=== PATIENT | female | born 1945 | race African-American/Black ===

== ENCOUNTER 2020-04-11 07:33 | Inpatient (IN) | payer MEDICARE, MEDICAID ==
[~2020-04-11] VITALS: Ht 160 cm; Wt 80.0 kg
[2020-04-11] MEDS ORDERED: LEVETIRACETAM 1000MG/100ML 100 ML IV ONE (08:15)
[2020-04-11 08:35] LABS: HEMOGLOBIN. 12.1 g/dL (12.0-16.0); MEAN CORPUSCULAR HEMOGLOBIN 29.1 pg (28.0-32.0); MEAN CORPUSCULAR VOLUME 84.3 fL (81.0-99.0); MEAN PLATELET VOLUME 8.4 fl (7.4-10.4); PLATELET 279 x1000/uL (130-400); RED BLOOD CELL COUNT 4.15 mill/uL (4.2-5.4)
[2020-04-11 08:42] LABS: CHLORIDE 104 mEq/L (98-107)
[2020-04-11 08:50] LABS: CREATINE KINASE 178 IU/L (26-192)
[2020-04-11 08:51] LABS: D-DIMER 1.31 mg/L FEU (<0.50); INR 0.9; PROTHROMBIN TIME 9.7 sec (9.6-11.0)
[2020-04-11 09:01] LABS: CARBAMAZEPINE < 0.5 ug/mL (4-12); PHENOBARBITAL < 2.1 ug/mL (15.0-40.0); VALPROIC ACID < 3.0 ug/mL (50-100)
[2020-04-11 09:15] LABS: PLATELET ESTIMATE NORMAL
[2020-04-11] MEDS ORDERED: POTASSIUM CHLORIDE 20MEQ TABLET SR PO ONE (09:15)
[2020-04-11 09:39] LABS: CLARITY URINE CLOUDY (CLEAR); COLOR URINE YELLOW (YELLOW); KETONES URINE NEGATIVE (NEGATIVE); LEUKOCYTE ESTERASE URINE 3+ (NEGATIVE); NITRITE URINE NEGATIVE (NEGATIVE); OCCULT BLOOD URINE 2+ (NEGATIVE); PROTEIN URINE 1+ (NEGATIVE); SPECIFIC GRAVITY URINE 1.011 (1.005-1.030); UROBILINOGEN URINE 0.2 E.U./dL (0.2-1.0)
[2020-04-11] MEDS ORDERED: CEFTRIAXONE 1 G PREMIX 50 ML IV ONE (10:45)
[2020-04-11] MEDS: SODIUM CHLORIDE 0.45% 1,000 ML IV SCH ×2 (10:58→22:55)
[2020-04-11] MEDS ORDERED: DOCUSATE SODIUM 100MG CAPSULE PO PRN (11:00)
[2020-04-11] MEDS ORDERED: HYDROCODONE/ACETAMINOPHEN 5/325MG TABLET PO PRN (11:00)
[2020-04-11] MEDS ORDERED: GUAIFENESIN 200MG/10ML SUGAR FREE UDC PO PRN (11:00)
[2020-04-11] MEDS ORDERED: ONDANSETRON HCL 4MG/2ML INJ IV PRN (11:00)
[2020-04-11] MEDS ORDERED: MAGNESIUM/ALUMINUM HYDROXIDE/SIMETHICONE 30ML UDC PO PRN (11:00)
[2020-04-11] MEDS ORDERED: DIPHENHYDRAMINE 50MG/ML VIAL IV PRN (11:00)
[2020-04-11] MEDS ORDERED: NA PHOS,M-B/NA PHOS,DI-BA ENEMA 118ML PR PRN (11:00)
[2020-04-11] MEDS ORDERED: LORAZEPAM 2MG/ML CPJ IV PRN (11:00)
[2020-04-11] MEDS ORDERED: IPRATROPIUM/ALBUTEROL 0.5-3(2.5)MG/3ML NEB NEB PRN (11:00)
[2020-04-11] MEDS ORDERED: MORPHINE SULFATE 2 MG/ML CPJ (NOT FOR IM USE) IV PRN (11:00)
[2020-04-11] MEDS ORDERED: CLONIDINE 0.1MG TABLET PO PRN (11:00)
[2020-04-11] MEDS: ENOXAPARIN 30MG/0.3ML SYR SUBCUT SCH (12:15)
[2020-04-11] MEDS: AZITHROMYCIN 500 MG in DEXT 5% WATER 250 ML IV SCH (12:27)
[2020-04-11 17:33] LABS: CHLORIDE 112 mEq/L (98-107)
[2020-04-11 17:41] LABS: CREATINE KINASE 166 IU/L (26-192)
[2020-04-11] MEDS ORDERED: AMLO-375 MT (18:00)
[2020-04-11] MEDS ORDERED: CALC-1042 MT (18:00)
[2020-04-11] MEDS ORDERED: VALS1TAB75 MT (18:00)
[2020-04-11] MEDS ORDERED: METF-416 MT (18:00)
[2020-04-11] MEDS ORDERED: BRIM10DR2 EACHEYE (18:02)
[2020-04-11] MEDS ORDERED: LATA2.5D2 EACHEYE (18:02)
[2020-04-11 21:30] VITALS: BP 136/51
[2020-04-11] MEDS ORDERED: LEVETIRACETAM 500MG PREMIX 100 ML IV ONE (21:30)
[2020-04-11] MEDS: ACETAMINOPHEN 325MG TABLET PO PRN (22:23)
[2020-04-11] MEDS ORDERED: DEXTROSE 50% WATER 50ML SYRINGE IV PRN (23:15)
[2020-04-12] VITALS: BP 87/36
[2020-04-12] MEDS ORDERED: ALBUTEROL 6.7GM HFA INHALER INH PRN (03:00)
[2020-04-12 04:00] VITALS: BP 84/40
[2020-04-12] MEDS: BLOOD SUGAR DIAGNOSTIC STRIP TEST SCH ×4 (06:08→21:42)
[2020-04-12 07:20] LABS: BASOPHILS % 0.2 % (0.0-2.0); HEMATOCRIT. 30.1 % (36.0-48.0); HEMOGLOBIN. 10.3 g/dL (12.0-16.0); LYMPHOCYTES % 15.2 % (20.0-50.0); MEAN CORPUSCULAR HEMOGLOBIN 29.2 pg (28.0-32.0); MEAN CORPUSCULAR VOLUME 85.2 fL (81.0-99.0); MONOCYTES % 7.2 % (2.0-8.0); NEUTROPHILS % 77.4 % (40.0-76.0); PLATELET 221 x1000/uL (130-400); RED BLOOD CELL COUNT 3.53 mill/uL (4.2-5.4); RED CELL DISTRIBUTION WIDTH 14.2 % (11.6-14.6)
[2020-04-12 07:38] LABS: CHLORIDE 116 mEq/L (98-107)
[2020-04-12 07:48] LABS: LDL CHOLESTEROL 68 mg/dL (5-100)
[2020-04-12 07:50] LABS: T4 FREE 1.28 ng/dL (0.76-1.46)
[2020-04-12 07:53] LABS: PHOSPHORUS 2.6 mg/dL (2.5-4.9)
[2020-04-12 07:56] LABS: HDL CHOLESTEROL 37 mg/dL (40-59)
[2020-04-12 08:00] VITALS: BP 100/43
[2020-04-12] MEDS: INSULIN LISPRO 100 UNITS/ML SUBCUT SCH ×4 (08:10→21:00)
[2020-04-12] MEDS: ENOXAPARIN 30MG/0.3ML SYR SUBCUT SCH (08:40)
[2020-04-12] MEDS: ASPIRIN 81MG EC TABLET PO SCH (08:40)
[2020-04-12] MEDS: LEVETIRACETAM 500MG TABLET PO SCH ×2 (08:40→16:19)
[2020-04-12] MEDS: ACETAMINOPHEN 325MG TABLET PO PRN ×2 (10:37→21:43)
[2020-04-12 12:00] VITALS: BP 101/51
[2020-04-12] MEDS ORDERED: LEVOFLOXACIN 500MG PREMIX 100 ML IV NR (12:00)
[2020-04-12] MEDS: AZITHROMYCIN 500 MG in DEXT 5% WATER 250 ML IV SCH (12:35)
[2020-04-12 16:00] VITALS: BP 103/46
[2020-04-12 20:00] VITALS: BP 136/49
[2020-04-13] VITALS: BP 107/39
[2020-04-13] MEDS: ACETAMINOPHEN 325MG TABLET PO PRN ×2 (03:34→16:18)
[2020-04-13 04:00] VITALS: BP 103/46
[2020-04-13] MEDS: BLOOD SUGAR DIAGNOSTIC STRIP TEST SCH ×4 (05:54→20:49)
[2020-04-13 06:19] LABS: BASOPHILS % 0.1 % (0.0-2.0); HEMATOCRIT. 30.4 % (36.0-48.0); HEMOGLOBIN. 10.3 g/dL (12.0-16.0); LYMPHOCYTES % 10.9 % (20.0-50.0); MEAN CORPUSCULAR HEMOGLOBIN 29.1 pg (28.0-32.0); MEAN CORPUSCULAR VOLUME 85.4 fL (81.0-99.0); MEAN PLATELET VOLUME 7.8 fl (7.4-10.4); MONOCYTES % 4.5 % (2.0-8.0); NEUTROPHILS % 84.5 % (40.0-76.0); PLATELET 252 x1000/uL (130-400); RED BLOOD CELL COUNT 3.56 mill/uL (4.2-5.4); RED CELL DISTRIBUTION WIDTH 14.4 % (11.6-14.6)
[2020-04-13 06:41] LABS: CHLORIDE 112 mEq/L (98-107)
[2020-04-13] MEDS: INSULIN LISPRO 100 UNITS/ML SUBCUT SCH ×4 (07:25→20:49)
[2020-04-13 07:46] VITALS: BP 97/35
[2020-04-13] MEDS: ENOXAPARIN 30MG/0.3ML SYR SUBCUT SCH (08:34)
[2020-04-13] MEDS: ASPIRIN 81MG EC TABLET PO SCH (08:34)
[2020-04-13] MEDS: LEVETIRACETAM 500MG TABLET PO SCH ×2 (08:34→16:18)
[2020-04-13] MEDS: LEVOFLOXACIN 250MG PREMIX 50 ML IV SCH (08:34)
[2020-04-13 12:00] VITALS: BP 132/55
[2020-04-13] MEDS: SODIUM CHLORIDE 0.45% 1,000 ML IV SCH ×2 (12:53→22:58)
[2020-04-13] MEDS: AZITHROMYCIN 500 MG in DEXT 5% WATER 250 ML IV SCH (13:11)
[2020-04-13 16:00] VITALS: BP 103/51
[2020-04-13 20:00] VITALS: BP 100/42
[2020-04-14] VITALS: BP 123/49
[2020-04-14] MEDS: ACETAMINOPHEN 325MG TABLET PO PRN ×3 (00:45→22:21)
[2020-04-14 04:00] VITALS: BP 123/56
[2020-04-14] MEDS: BLOOD SUGAR DIAGNOSTIC STRIP TEST SCH ×4 (07:05→21:52)
[2020-04-14] MEDS: INSULIN LISPRO 100 UNITS/ML SUBCUT SCH ×4 (07:47→22:21)
[2020-04-14 07:52] LABS: BASOPHILS % 0.1 % (0.0-2.0); HEMATOCRIT. 32.3 % (36.0-48.0); HEMOGLOBIN. 11.1 g/dL (12.0-16.0); LYMPHOCYTES % 8.1 % (20.0-50.0); MEAN CORPUSCULAR HEMOGLOBIN 29.1 pg (28.0-32.0); MEAN CORPUSCULAR VOLUME 84.9 fL (81.0-99.0); MEAN PLATELET VOLUME 7.4 fl (7.4-10.4); NEUTROPHILS % 86.8 % (40.0-76.0); PLATELET 302 x1000/uL (130-400); RED BLOOD CELL COUNT 3.81 mill/uL (4.2-5.4); RED CELL DISTRIBUTION WIDTH 14.1 % (11.6-14.6)
[2020-04-14 08:00] VITALS: BP 120/61
[2020-04-14 08:14] LABS: CHLORIDE 111 mEq/L (98-107)
[2020-04-14] MEDS: LEVETIRACETAM 500MG TABLET PO SCH ×2 (08:38→18:00)
[2020-04-14] MEDS: ENOXAPARIN 40MG/0.4ML SYR SUBCUT SCH (08:38)
[2020-04-14] MEDS: LEVOFLOXACIN 250MG PREMIX 50 ML IV SCH (08:38)
[2020-04-14] MEDS: ASPIRIN 81MG EC TABLET PO SCH (08:38)
[2020-04-14 12:00] VITALS: BP 126/55
[2020-04-14] MEDS: AZITHROMYCIN 500 MG in DEXT 5% WATER 250 ML IV SCH (13:25)
[2020-04-14 16:00] VITALS: BP 118/59
[2020-04-14] MEDS: ALBUTEROL 6.7GM HFA INHALER ORI SCH ×2 (18:00→22:51)
[2020-04-14] MEDS: CEFTRIAXONE 1 G PREMIX 50 ML IV SCH (18:30)
[2020-04-14] MEDS: SODIUM CHLORIDE 0.45% 1,000 ML IV SCH (18:52)
[2020-04-14 20:00] VITALS: BP 115/48
[2020-04-15] VITALS: BP 111/43
[2020-04-15 04:00] VITALS: BP 145/67
[2020-04-15] MEDS: BLOOD SUGAR DIAGNOSTIC STRIP TEST SCH ×4 (06:55→21:00)
[2020-04-15] MEDS: ALBUTEROL 6.7GM HFA INHALER ORI SCH ×3 (06:56→18:00)
[2020-04-15 08:00] VITALS: BP 114/54
[2020-04-15] MEDS: INSULIN LISPRO 100 UNITS/ML SUBCUT SCH ×4 (08:10→22:13)
[2020-04-15] MEDS: LEVETIRACETAM 500MG TABLET PO SCH ×2 (08:46→17:30)
[2020-04-15] MEDS: ENOXAPARIN 40MG/0.4ML SYR SUBCUT SCH (08:46)
[2020-04-15] MEDS: ASPIRIN 81MG EC TABLET PO SCH (08:46)
[2020-04-15 12:00] VITALS: BP_SYST 119; BP_DIAS 13; BP_DIAS 36
[2020-04-15] MEDS: AZITHROMYCIN 500 MG in DEXT 5% WATER 250 ML IV SCH (12:18)
[2020-04-15] MEDS ORDERED: REMDESIVIR 200 MG in SODIUM CHLORIDE 0.9% 250 ML IV SCH (15:00)
[2020-04-15] MEDS: DEXAMETHASONE 10 MG/ML VIAL IV SCH (15:38)
[2020-04-15] MEDS: SODIUM CHLORIDE 0.45% 1,000 ML IV SCH (15:39)
[2020-04-15 16:12] VITALS: BP 162/63
[2020-04-15] MEDS: CEFTRIAXONE 1 G PREMIX 50 ML IV SCH (18:43)
[2020-04-15 20:00] VITALS: BP 155/77
[2020-04-15 21:24] LABS: BG BASE EXCESS -5.9 mmol/L (-2.0-2.0); BG CARBOXYHEMOGLOBIN 0.3 % (0.5-1.5); BG DEOXYHEMOGLOBIN 9.8 % (0.0-5.0); BG FRACTION INSPIRED OXYGEN 100+; BG HCO3 ACT 17.2 mmol/L (22.0-26.0); BG METHEMOGLOBIN 0.3 % (0.0-1.5); BG OXYGEN SATURATION 90.1 % (92.0-98.5); BG OXYHEMOGLOBIN 89.6 % (94.0-97.0); BG PCO2 26.8 mmHg (35.0-45.0); BG PH 7.424 (7.350-7.450); BG SAMPLE SITE RIGHT BRACHIAL; BG TOTAL HEMOGLOBIN 11.4 g/dL (12.0-18.0); BG VENT MODE MASK - NRB
[2020-04-15] MEDS: GUAIFENESIN 600MG ER TABLET PO SCH (22:12)
[2020-04-16] VITALS (94 sets, daily range): BP systolic 57–201; BP diastolic 27–115
[2020-04-16 05:55] LABS: CHLORIDE 108 mEq/L (98-107)
[2020-04-16] MEDS: BLOOD SUGAR DIAGNOSTIC STRIP TEST SCH ×5 (06:31→23:11)
[2020-04-16] MEDS: INSULIN LISPRO 100 UNITS/ML SUBCUT SCH ×4 (07:27→23:13)
[2020-04-16] MEDS: ASPIRIN 81MG EC TABLET PO SCH (08:14)
[2020-04-16] MEDS: GUAIFENESIN 600MG ER TABLET PO SCH ×2 (08:14→20:54)
[2020-04-16] MEDS: DEXAMETHASONE 10 MG/ML VIAL IV SCH ×2 (08:14→16:18)
[2020-04-16] MEDS: LEVETIRACETAM 500MG TABLET PO SCH ×2 (08:14→16:18)
[2020-04-16] MEDS: ENOXAPARIN 40MG/0.4ML SYR SUBCUT SCH (08:15)
[2020-04-16 09:32] LABS: BG BASE EXCESS -7.3 mmol/L (-2.0-2.0); BG CARBOXYHEMOGLOBIN 0.3 % (0.5-1.5); BG DEOXYHEMOGLOBIN 16.2 % (0.0-5.0); BG FRACTION INSPIRED OXYGEN 100; BG HCO3 ACT 16.7 mmol/L (22.0-26.0); BG METHEMOGLOBIN 0.2 % (0.0-1.5); BG OXYGEN SATURATION 83.7 % (92.0-98.5); BG OXYHEMOGLOBIN 83.3 % (94.0-97.0); BG PCO2 29.3 mmHg (35.0-45.0); BG PH 7.373 (7.350-7.450); BG PO2 50.5 mmHg (75.0-100.0); BG SAMPLE SITE RIGHT RADIAL; BG TOTAL HEMOGLOBIN 11.8 g/dL (12.0-18.0); BG VENT MODE MASK - NRB
[2020-04-16] MEDS ORDERED: NOREPINEPHRINE 32 MG in DEXT 5% WATER 468 ML IV PRN (10:00)
[2020-04-16 10:06] LABS: HEMATOCRIT. 32.5 % (36.0-48.0); HEMOGLOBIN. 10.8 g/dL (12.0-16.0); MEAN CORPUSCULAR HEMOGLOBIN 28.7 pg (28.0-32.0); MEAN CORPUSCULAR VOLUME 86.5 fL (81.0-99.0); MEAN PLATELET VOLUME 7.7 fl (7.4-10.4); RED BLOOD CELL COUNT 3.76 mill/uL (4.2-5.4); RED CELL DISTRIBUTION WIDTH 14.3 % (11.6-14.6)
[2020-04-16 10:11] LABS: PLATELET 41 x1000/uL (130-400)
[2020-04-16] MEDS: PROPOFOL 10MG/ML 100ML 100 ML IV PRN ×3 (10:35→21:34)
[2020-04-16 11:18] LABS: PLATELET ESTIMATE MARKEDLY DECREASED
[2020-04-16] MEDS: SODIUM CHLORIDE 0.45% 1,000 ML IV SCH (11:18)
[2020-04-16] MEDS: FENTANYL CITRATE/PF 1,000 MCG in SODIUM CHLORIDE 0.9% 80 ML IV PRN ×2 (11:19→22:50)
[2020-04-16 11:31] LABS: BG BASE EXCESS -7.2 mmol/L (-2.0-2.0); BG CARBOXYHEMOGLOBIN 0.2 % (0.5-1.5); BG DEOXYHEMOGLOBIN 1.9 % (0.0-5.0); BG FRACTION INSPIRED OXYGEN 100; BG HCO3 ACT 18.2 mmol/L (22.0-26.0); BG METHEMOGLOBIN 0.3 % (0.0-1.5); BG OXYGEN SATURATION 98.1 % (92.0-98.5); BG OXYHEMOGLOBIN 97.6 % (94.0-97.0); BG PCO2 36.2 mmHg (35.0-45.0); BG PH 7.319 (7.350-7.450); BG PO2 139.6 mmHg (75.0-100.0); BG SAMPLE SITE RIGHT RADIAL; BG TIDAL VOLUME(mL) 450 mL; BG TOTAL HEMOGLOBIN 10.9 g/dL (12.0-18.0); BG VENT MODE VENT- PRVC; BG VENT RATE 18 set
[2020-04-16] MEDS: REMDESIVIR 100 MG in SODIUM CHLORIDE 0.9% 250 ML IV SCH (14:02)
[2020-04-16] MEDS ORDERED: INSULIN GLARGINE UD 100 UNITS/ML SYR SUBCUT SCH (15:00)
[2020-04-16] MEDS ORDERED: DEXTROSE 50% WATER 50ML SYRINGE IV PRN (16:45)
[2020-04-16] MEDS: CEFTRIAXONE 1 G PREMIX 50 ML IV SCH (17:34)
[2020-04-17] VITALS (109 sets, daily range): BP systolic 81–170; BP diastolic 32–106
[2020-04-17] MEDS: NOREPINEPHRINE 4 MG in DEXT 5% WATER 246 ML IV PRN (00:37)
[2020-04-17 05:28] LABS: HEMATOCRIT. 29.9 % (36.0-48.0); HEMOGLOBIN. 10.2 g/dL (12.0-16.0); MEAN CORPUSCULAR HEMOGLOBIN 29.2 pg (28.0-32.0); MEAN CORPUSCULAR VOLUME 86.1 fL (81.0-99.0); MEAN PLATELET VOLUME 8.8 fl (7.4-10.4); RED BLOOD CELL COUNT 3.47 mill/uL (4.2-5.4); RED CELL DISTRIBUTION WIDTH 14.4 % (11.6-14.6)
[2020-04-17 05:33] LABS: CHLORIDE 109 mEq/L (98-107)
[2020-04-17] MEDS: INSULIN LISPRO 100 UNITS/ML SUBCUT SCH ×4 (05:40→23:36)
[2020-04-17] MEDS: BLOOD SUGAR DIAGNOSTIC STRIP TEST SCH ×4 (05:40→23:32)
[2020-04-17] MEDS: ALBUTEROL 6.7GM HFA INHALER ORI SCH ×4 (06:00→20:18)
[2020-04-17] MEDS: PROPOFOL 10MG/ML 100ML 100 ML IV PRN (06:10)
[2020-04-17] MEDS: SODIUM CHLORIDE 0.45% 1,000 ML IV SCH (07:16)
[2020-04-17] MEDS: GUAIFENESIN 600MG ER TABLET PO SCH ×2 (09:00→20:05)
[2020-04-17 09:10] LABS: BG BASE EXCESS -5.4 mmol/L (-2.0-2.0); BG CARBOXYHEMOGLOBIN 0.2 % (0.5-1.5); BG DEOXYHEMOGLOBIN 8.5 % (0.0-5.0); BG FRACTION INSPIRED OXYGEN 80; BG HCO3 ACT 19.7 mmol/L (22.0-26.0); BG OXYGEN SATURATION 91.5 % (92.0-98.5); BG OXYHEMOGLOBIN 91.3 % (94.0-97.0); BG PCO2 36.7 mmHg (35.0-45.0); BG PH 7.347 (7.350-7.450); BG SAMPLE SITE RIGHT RADIAL; BG TIDAL VOLUME(mL) 450 mL; BG TOTAL HEMOGLOBIN 10.1 g/dL (12.0-18.0); BG VENT MODE VENT- PRVC; BG VENT RATE 20 set
[2020-04-17 10:03] LABS: PLATELET ESTIMATE MARKEDLY DECREASED
[2020-04-17 10:04] LABS: PLATELET 9 x1000/uL (130-400)
[2020-04-17] MEDS: LEVETIRACETAM 500MG TABLET PO SCH ×2 (10:07→17:04)
[2020-04-17] MEDS: DEXAMETHASONE 10 MG/ML VIAL IV SCH ×2 (10:07→17:04)
[2020-04-17] MEDS: INSULIN GLARGINE UD 100 UNITS/ML SYR SUBCUT SCH (10:09)
[2020-04-17] MEDS: FENTANYL CITRATE/PF 1,000 MCG in SODIUM CHLORIDE 0.9% 80 ML IV PRN ×2 (10:52→23:33)
[2020-04-17] MEDS ORDERED: PROPOFOL 10MG/ML 100ML 100 ML IV PRN ×2 (13:30→14:15)
[2020-04-17] MEDS: REMDESIVIR 100 MG in SODIUM CHLORIDE 0.9% 250 ML IV SCH (15:09)
[2020-04-17] MEDS: MIDAZOLAM HCL 100 MG in DEXT 5% WATER 80 ML IV PRN (16:41)
[2020-04-17] MEDS: CEFTRIAXONE 1 G PREMIX 50 ML IV SCH (17:59)
[2020-04-18] VITALS (95 sets, daily range): BP systolic 106–166; BP diastolic 37–81
[2020-04-18] MEDS: ALBUTEROL 6.7GM HFA INHALER ORI SCH ×3 (00:58→21:28)
[2020-04-18 05:15] LABS: CHLORIDE 111 mEq/L (98-107)
[2020-04-18] MEDS: SODIUM CHLORIDE 0.45% 1,000 ML IV SCH (05:16)
[2020-04-18] MEDS: BLOOD SUGAR DIAGNOSTIC STRIP TEST SCH ×3 (05:16→17:51)
[2020-04-18] MEDS: INSULIN LISPRO 100 UNITS/ML SUBCUT SCH ×4 (05:16→23:25)
[2020-04-18 06:10] LABS: HEMOGLOBIN. 9.5 g/dL (12.0-16.0); MEAN CORPUSCULAR HEMOGLOBIN 29.1 pg (28.0-32.0); MEAN CORPUSCULAR VOLUME 85.6 fL (81.0-99.0); RED BLOOD CELL COUNT 3.27 mill/uL (4.2-5.4); RED CELL DISTRIBUTION WIDTH 14.4 % (11.6-14.6)
[2020-04-18 06:14] LABS: PLATELET 42 x1000/uL (130-400)
[2020-04-18] MEDS: DEXAMETHASONE 10 MG/ML VIAL IV SCH ×2 (09:23→18:17)
[2020-04-18] MEDS: LEVETIRACETAM 500MG TABLET PO SCH ×2 (09:23→18:17)
[2020-04-18 09:37] LABS: BG BASE EXCESS -6.3 mmol/L (-2.0-2.0); BG CARBOXYHEMOGLOBIN 0.3 % (0.5-1.5); BG DEOXYHEMOGLOBIN 2.3 % (0.0-5.0); BG FRACTION INSPIRED OXYGEN 80; BG HCO3 ACT 18.7 mmol/L (22.0-26.0); BG METHEMOGLOBIN 0.3 % (0.0-1.5); BG OXYGEN SATURATION 97.7 % (92.0-98.5); BG OXYHEMOGLOBIN 97.1 % (94.0-97.0); BG PH 7.345 (7.350-7.450); BG PO2 120.2 mmHg (75.0-100.0); BG SAMPLE SITE RIGHT RADIAL; BG TIDAL VOLUME(mL) 450 mL; BG TOTAL HEMOGLOBIN 9.2 g/dL (12.0-18.0); BG VENT MODE VENT- PRVC; BG VENT RATE 20 set
[2020-04-18] MEDS ORDERED: BISACODYL 5MG TABLET PO PRN (09:45)
[2020-04-18 10:22] LABS: PLATELET ESTIMATE MARKEDLY DECREASED
[2020-04-18] MEDS: DOCUSATE SODIUM SUGAR FREE 100MG/10ML UDC NG SCH (12:52)
[2020-04-18] MEDS: INSULIN GLARGINE UD 100 UNITS/ML SYR SUBCUT SCH ×2 (12:54→21:22)
[2020-04-18] MEDS: FENTANYL CITRATE/PF 1,000 MCG in SODIUM CHLORIDE 0.9% 80 ML IV PRN (13:12)
[2020-04-18] MEDS: MIDAZOLAM HCL 100 MG in DEXT 5% WATER 80 ML IV PRN (13:12)
[2020-04-18] MEDS: REMDESIVIR 100 MG in SODIUM CHLORIDE 0.9% 250 ML IV SCH (14:18)
[2020-04-18] MEDS: PANTOPRAZOLE SODIUM 40 MG/VIAL IV SCH (18:17)
[2020-04-18] MEDS ORDERED: NON FORMULARY PATIENT HOME MED XX SCH (18:30)
[2020-04-18] MEDS: CEFTRIAXONE 1 G PREMIX 50 ML IV SCH (18:30)
[2020-04-18] MEDS: LATANOPROST 0.005% OPHTH DROPS 2.5ML BOTHEYE SCH (21:22)
[2020-04-18] MEDS: TIMOLOL MALEATE 0.5% OPHTH DROPS 5ML EACHEYE SCH (21:22)
[2020-04-18] MEDS: BRIMONIDINE 0.2% OPHTH DROPS 5ML EACHEYE SCH (21:23)
[2020-04-19] VITALS (96 sets, daily range): BP systolic 79–192; BP diastolic 32–148
[2020-04-19] MEDS: BLOOD SUGAR DIAGNOSTIC STRIP TEST SCH ×5 (00:48→23:39)
[2020-04-19] MEDS: ALBUTEROL 6.7GM HFA INHALER ORI SCH ×4 (01:26→20:10)
[2020-04-19] MEDS: MIDAZOLAM HCL 100 MG in DEXT 5% WATER 80 ML IV PRN ×2 (05:50→16:03)
[2020-04-19] MEDS: INSULIN LISPRO 100 UNITS/ML SUBCUT SCH ×4 (06:20→23:41)
[2020-04-19 06:21] LABS: CHLORIDE 119 mEq/L (98-107)
[2020-04-19] MEDS: BRIMONIDINE 0.2% OPHTH DROPS 5ML EACHEYE SCH ×3 (06:22→22:31)
[2020-04-19 06:52] LABS: HEMATOCRIT. 28.3 % (36.0-48.0); HEMOGLOBIN. 9.7 g/dL (12.0-16.0); MEAN CORPUSCULAR HEMOGLOBIN 29.1 pg (28.0-32.0); MEAN PLATELET VOLUME 9.4 fl (7.4-10.4); RED BLOOD CELL COUNT 3.33 mill/uL (4.2-5.4); RED CELL DISTRIBUTION WIDTH 14.3 % (11.6-14.6)
[2020-04-19 07:01] LABS: PLATELET 37 x1000/uL (130-400)
[2020-04-19] MEDS: FENTANYL CITRATE/PF 1,000 MCG in SODIUM CHLORIDE 0.9% 80 ML IV PRN ×2 (07:17→16:01)
[2020-04-19 08:19] LABS: BG BASE EXCESS -0.7 mmol/L (-2.0-2.0); BG CARBOXYHEMOGLOBIN 0.3 % (0.5-1.5); BG DEOXYHEMOGLOBIN 7.6 % (0.0-5.0); BG FRACTION INSPIRED OXYGEN 100; BG HCO3 ACT 24.6 mmol/L (22.0-26.0); BG METHEMOGLOBIN 0.2 % (0.0-1.5); BG OXYGEN SATURATION 92.4 % (92.0-98.5); BG OXYHEMOGLOBIN 91.9 % (94.0-97.0); BG PCO2 43.4 mmHg (35.0-45.0); BG PH 7.372 (7.350-7.450); BG PO2 77.6 mmHg (75.0-100.0); BG SAMPLE SITE RIGHT RADIAL; BG TIDAL VOLUME(mL) 450 mL; BG TOTAL HEMOGLOBIN 12.3 g/dL (12.0-18.0); BG VENT MODE PRVC; BG VENT RATE 20 set
[2020-04-19] MEDS: TIMOLOL MALEATE 0.5% OPHTH DROPS 5ML EACHEYE SCH ×2 (08:55→21:00)
[2020-04-19] MEDS: PANTOPRAZOLE SODIUM 40 MG/VIAL IV SCH (08:55)
[2020-04-19] MEDS: DOCUSATE SODIUM SUGAR FREE 100MG/10ML UDC NG SCH (08:55)
[2020-04-19] MEDS: LEVETIRACETAM 500MG TABLET PO SCH ×2 (08:55→18:01)
[2020-04-19] MEDS: DEXAMETHASONE 10 MG/ML VIAL IV SCH ×2 (08:55→18:01)
[2020-04-19] MEDS ORDERED: DEXTROSE 5% WATER 1,000 ML IV SCH (10:15)
[2020-04-19 11:58] LABS: BG BASE EXCESS -3.5 mmol/L (-2.0-2.0); BG CARBOXYHEMOGLOBIN 0.3 % (0.5-1.5); BG DEOXYHEMOGLOBIN 17.1 % (0.0-5.0); BG FRACTION INSPIRED OXYGEN 100; BG HCO3 ACT 24.2 mmol/L (22.0-26.0); BG METHEMOGLOBIN 0.5 % (0.0-1.5); BG OXYGEN SATURATION 82.8 % (92.0-98.5); BG OXYHEMOGLOBIN 82.1 % (94.0-97.0); BG PH 7.253 (7.350-7.450); BG PO2 55.5 mmHg (75.0-100.0); BG SAMPLE SITE RIGHT RADIAL; BG TIDAL VOLUME(mL) 450 mL; BG TOTAL HEMOGLOBIN 11.2 g/dL (12.0-18.0); BG VENT MODE PRVC; BG VENT RATE 20 set
[2020-04-19] MEDS: INSULIN GLARGINE UD 100 UNITS/ML SYR SUBCUT SCH ×2 (12:05→22:07)
[2020-04-19] MEDS: REMDESIVIR 100 MG in SODIUM CHLORIDE 0.9% 250 ML IV SCH (14:29)
[2020-04-19] MEDS: NOREPINEPHRINE 4 MG in DEXT 5% WATER 246 ML IV PRN ×3 (14:55→23:39)
[2020-04-19 14:59] LABS: PLATELET ESTIMATE MARKEDLY DECREASED
[2020-04-19] MEDS: CEFTRIAXONE 1 G PREMIX 50 ML IV SCH (18:02)
[2020-04-19] MEDS: LATANOPROST 0.005% OPHTH DROPS 2.5ML BOTHEYE SCH (21:00)
[2020-04-20] VITALS (76 sets, daily range): BP systolic 56–150; BP diastolic 28–65
[2020-04-20] MEDS: ALBUTEROL 6.7GM HFA INHALER ORI SCH ×3 (00:20→12:35)
[2020-04-20] MEDS: NOREPINEPHRINE 4 MG in DEXT 5% WATER 246 ML IV PRN ×2 (02:56→13:28)
[2020-04-20] MEDS: FENTANYL CITRATE/PF 1,000 MCG in SODIUM CHLORIDE 0.9% 80 ML IV PRN ×2 (03:44→13:29)
[2020-04-20] MEDS: MIDAZOLAM HCL 100 MG in DEXT 5% WATER 80 ML IV PRN ×2 (03:45→13:30)
[2020-04-20 04:55] LABS: HEMATOCRIT. 31.2 % (36.0-48.0); HEMOGLOBIN. 10.1 g/dL (12.0-16.0); MEAN CORPUSCULAR HEMOGLOBIN 28.9 pg (28.0-32.0); MEAN PLATELET VOLUME 9.9 fl (7.4-10.4); PLATELET 102 x1000/uL (130-400); RED BLOOD CELL COUNT 3.51 mill/uL (4.2-5.4); RED CELL DISTRIBUTION WIDTH 15.1 % (11.6-14.6)
[2020-04-20] MEDS: BRIMONIDINE 0.2% OPHTH DROPS 5ML EACHEYE SCH ×2 (06:00→14:00)
[2020-04-20] MEDS: BLOOD SUGAR DIAGNOSTIC STRIP TEST SCH ×4 (06:06→23:29)
[2020-04-20] MEDS: INSULIN LISPRO 100 UNITS/ML SUBCUT SCH ×4 (06:09→23:21)
[2020-04-20] MEDS: TIMOLOL MALEATE 0.5% OPHTH DROPS 5ML EACHEYE SCH ×2 (08:23→21:00)
[2020-04-20] MEDS: PANTOPRAZOLE SODIUM 40 MG/VIAL IV SCH (08:24)
[2020-04-20] MEDS: LEVETIRACETAM 500MG TABLET PO SCH ×2 (08:24→17:00)
[2020-04-20] MEDS: DOCUSATE SODIUM SUGAR FREE 100MG/10ML UDC NG SCH (08:34)
[2020-04-20] MEDS ORDERED: DEXAMETHASONE 10 MG/ML VIAL IV SCH (09:00)
[2020-04-20 09:03] LABS: BG CARBOXYHEMOGLOBIN 0.1 % (0.5-1.5); BG DEOXYHEMOGLOBIN 1.6 % (0.0-5.0); BG FRACTION INSPIRED OXYGEN 100; BG HCO3 ACT 20.7 mmol/L (22.0-26.0); BG METHEMOGLOBIN 0.2 % (0.0-1.5); BG OXYGEN SATURATION 98.4 % (92.0-98.5); BG OXYHEMOGLOBIN 98.1 % (94.0-97.0); BG PCO2 63.1 mmHg (35.0-45.0); BG PH 7.134 (7.350-7.450); BG PO2 137.1 mmHg (75.0-100.0); BG SAMPLE SITE RIGHT RADIAL; BG TIDAL VOLUME(mL) 450 mL; BG TOTAL HEMOGLOBIN 12.5 g/dL (12.0-18.0); BG VENT MODE PRVC; BG VENT RATE 20 set
[2020-04-20] MEDS ORDERED: SODIUM BICARBONATE 8.4% 1 MEQ/ML 50ML SYR IV SCH (10:00)
[2020-04-20] MEDS: SODIUM BICARBONATE 150 MEQ in DEXTROSE 5% WATER 1000 ML IV SCH (11:00)
[2020-04-20] MEDS: INSULIN GLARGINE UD 100 UNITS/ML SYR SUBCUT SCH ×2 (11:11→22:00)
[2020-04-20 14:34] LABS: PLATELET ESTIMATE DECREASED
[2020-04-20 14:39] LABS: BG BASE EXCESS -4.3 mmol/L (-2.0-2.0); BG CARBOXYHEMOGLOBIN 0.3 % (0.5-1.5); BG DEOXYHEMOGLOBIN 1.5 % (0.0-5.0); BG FRACTION INSPIRED OXYGEN 90; BG HCO3 ACT 23.6 mmol/L (22.0-26.0); BG METHEMOGLOBIN 0.3 % (0.0-1.5); BG OXYGEN SATURATION 98.5 % (92.0-98.5); BG OXYHEMOGLOBIN 97.9 % (94.0-97.0); BG PCO2 58.1 mmHg (35.0-45.0); BG PH 7.227 (7.350-7.450); BG PO2 149.5 mmHg (75.0-100.0); BG SAMPLE SITE RIGHT RADIAL; BG TIDAL VOLUME(mL) 450 mL; BG VENT MODE VENT - A/C; BG VENT RATE 24 set
[2020-04-20] MEDS: LATANOPROST 0.005% OPHTH DROPS 2.5ML BOTHEYE SCH (21:00)
[2020-04-21] VITALS (83 sets, daily range): BP systolic 63–137; BP diastolic 31–66
[2020-04-21 04:37] LABS: HEMATOCRIT. 26.4 % (36.0-48.0); HEMOGLOBIN. 8.8 g/dL (12.0-16.0); MEAN CORPUSCULAR HEMOGLOBIN 28.8 pg (28.0-32.0); MEAN CORPUSCULAR VOLUME 86.8 fL (81.0-99.0); MEAN PLATELET VOLUME 10.9 fl (7.4-10.4); RED BLOOD CELL COUNT 3.04 mill/uL (4.2-5.4); RED CELL DISTRIBUTION WIDTH 15.3 % (11.6-14.6)
[2020-04-21] MEDS: BLOOD SUGAR DIAGNOSTIC STRIP TEST SCH ×16 (06:23→23:19)
[2020-04-21] MEDS: INSULIN LISPRO 100 UNITS/ML SUBCUT SCH (06:24)
[2020-04-21 07:02] LABS: PLATELET 34 x1000/uL (130-400)
[2020-04-21] MEDS: TIMOLOL MALEATE 0.5% OPHTH DROPS 5ML EACHEYE SCH ×2 (07:55→21:20)
[2020-04-21] MEDS: DOCUSATE SODIUM SUGAR FREE 100MG/10ML UDC NG SCH (07:55)
[2020-04-21] MEDS: LEVETIRACETAM 500MG TABLET PO SCH ×2 (07:56→16:12)
[2020-04-21] MEDS: SODIUM BICARBONATE 150 MEQ in DEXTROSE 5% WATER 1000 ML IV SCH (07:56)
[2020-04-21] MEDS: PANTOPRAZOLE SODIUM 40 MG/VIAL IV SCH (07:56)
[2020-04-21 09:12] LABS: BG CARBOXYHEMOGLOBIN 0.3 % (0.5-1.5); BG DEOXYHEMOGLOBIN 12.6 % (0.0-5.0); BG FRACTION INSPIRED OXYGEN 80; BG HCO3 ACT 29.6 mmol/L (22.0-26.0); BG METHEMOGLOBIN 0.3 % (0.0-1.5); BG OXYGEN SATURATION 87.3 % (92.0-98.5); BG OXYHEMOGLOBIN 86.8 % (94.0-97.0); BG PCO2 56.8 mmHg (35.0-45.0); BG PH 7.335 (7.350-7.450); BG PO2 54.3 mmHg (75.0-100.0); BG SAMPLE SITE RIGHT RADIAL; BG TIDAL VOLUME(mL) 450 mL; BG TOTAL HEMOGLOBIN 9.3 g/dL (12.0-18.0); BG VENT MODE VENT - A/C; BG VENT RATE 26 set
[2020-04-21] MEDS ORDERED: INSULIN REGULAR (DRIP) 100 UNITS in SODIUM CHLORIDE 0.9% 100 ML IV SCH (09:14)
[2020-04-21] MEDS ORDERED: DEXTROSE 50% WATER 50ML SYRINGE IV PRN ×2 (09:15)
[2020-04-21] MEDS: INSULIN GLARGINE UD 100 UNITS/ML SYR SUBCUT SCH ×2 (10:08→21:21)
[2020-04-21] MEDS: MIDAZOLAM HCL 100 MG in DEXT 5% WATER 80 ML IV PRN ×2 (10:14→20:12)
[2020-04-21] MEDS: FENTANYL CITRATE/PF 1,000 MCG in SODIUM CHLORIDE 0.9% 80 ML IV PRN ×2 (10:15→20:11)
[2020-04-21 11:48] LABS: PLATELET ESTIMATE MARKEDLY DECREASED
[2020-04-21] MEDS: METRONIDAZOLE 500MG TABLET PO SCH ×2 (14:00→21:20)
[2020-04-21] MEDS: NOREPINEPHRINE 4 MG in DEXT 5% WATER 246 ML IV PRN (14:09)
[2020-04-21] MEDS ORDERED: IPRATROPIUM/ALBUTEROL 0.5-3(2.5)MG/3ML NEB HHN PRN (14:15)
[2020-04-21] MEDS ORDERED: VANCOMYCIN 1 G PREMIX 200 ML IV SCH (16:00)
[2020-04-21] MEDS: CEFEPIME 1,000 MG in DEXTROSE 5% WATER 50 ML IV SCH (16:12)
[2020-04-21] MEDS ORDERED: DIGOXIN 500MCG/2ML AMP IV NR ×2 (17:30→18:00)
[2020-04-21] MEDS ORDERED: NOREPINEPHRINE 16 MG in DEXT 5% WATER 484 ML IV PRN (19:56)
[2020-04-21] MEDS ORDERED: NOREPINEPHRINE 8 MG in DEXTROSE 5% WATER 250 ML IV PRN (20:15)
[2020-04-21] MEDS: NOREPINEPHRINE 16 MG in DEXT 5% WATER 484 ML IV PRN (21:04)
[2020-04-21] MEDS: LATANOPROST 0.005% OPHTH DROPS 2.5ML BOTHEYE SCH (21:20)
[2020-04-22] VITALS (94 sets, daily range): BP systolic 63–191; BP diastolic 36–87
[2020-04-22] MEDS: BLOOD SUGAR DIAGNOSTIC STRIP TEST SCH ×13 (00:31→18:08)
[2020-04-22 05:32] LABS: HEMOGLOBIN. 9.5 g/dL (12.0-16.0)
[2020-04-22 05:53] LABS: PHOSPHORUS 3.3 mg/dL (2.5-4.9)
[2020-04-22] MEDS: BRIMONIDINE 0.2% OPHTH DROPS 5ML EACHEYE SCH ×3 (06:00→21:02)
[2020-04-22] MEDS: METRONIDAZOLE 500MG TABLET PO SCH ×3 (07:09→21:03)
[2020-04-22] MEDS: CEFEPIME 1,000 MG in DEXTROSE 5% WATER 50 ML IV SCH ×2 (07:09→17:46)
[2020-04-22 07:21] LABS: HEMATOCRIT. 28.4 % (36.0-48.0); MEAN CORPUSCULAR HEMOGLOBIN 29.2 pg (28.0-32.0); MEAN CORPUSCULAR VOLUME 87.1 fL (81.0-99.0); MEAN PLATELET VOLUME 10.1 fl (7.4-10.4); RED BLOOD CELL COUNT 3.26 mill/uL (4.2-5.4); RED CELL DISTRIBUTION WIDTH 15.2 % (11.6-14.6)
[2020-04-22 07:38] LABS: PLATELET 18 x1000/uL (130-400)
[2020-04-22] MEDS: FENTANYL CITRATE/PF 1,000 MCG in SODIUM CHLORIDE 0.9% 80 ML IV PRN ×2 (07:46→20:55)
[2020-04-22 08:05] LABS: BG BASE EXCESS 1.7 mmol/L (-2.0-2.0); BG CARBOXYHEMOGLOBIN 0.3 % (0.5-1.5); BG DEOXYHEMOGLOBIN 1.6 % (0.0-5.0); BG FRACTION INSPIRED OXYGEN 100; BG HCO3 ACT 28.5 mmol/L (22.0-26.0); BG METHEMOGLOBIN 0.1 % (0.0-1.5); BG OXYGEN SATURATION 98.4 % (92.0-98.5); BG PCO2 56.4 mmHg (35.0-45.0); BG PH 7.321 (7.350-7.450); BG PO2 141.9 mmHg (75.0-100.0); BG SAMPLE SITE RIGHT RADIAL; BG TIDAL VOLUME(mL) 450 mL; BG TOTAL HEMOGLOBIN 9.6 g/dL (12.0-18.0); BG VENT MODE VENT - A/C; BG VENT RATE 26 set
[2020-04-22] MEDS ORDERED: SODIUM POLYSTYRENE SULFONATE 15 G/60 ML BOT PO NR (08:30)
[2020-04-22] MEDS ORDERED: PHENYLEPHRINE 20 MG in DEXT 5% WATER 498 ML IV PRN (10:00)
[2020-04-22] MEDS: TIMOLOL MALEATE 0.5% OPHTH DROPS 5ML EACHEYE SCH ×2 (10:17→23:33)
[2020-04-22] MEDS: DOCUSATE SODIUM SUGAR FREE 100MG/10ML UDC NG SCH (10:18)
[2020-04-22] MEDS: DEXAMETHASONE 10 MG/ML VIAL IV SCH (10:18)
[2020-04-22] MEDS: PANTOPRAZOLE SODIUM 40 MG/VIAL IV SCH (10:18)
[2020-04-22] MEDS: LEVETIRACETAM 500MG TABLET PO SCH ×2 (10:18→16:22)
[2020-04-22] MEDS: INSULIN GLARGINE UD 100 UNITS/ML SYR SUBCUT SCH ×2 (10:19→21:04)
[2020-04-22] MEDS ORDERED: LIDOCAINE HCL 1% 20ML VIAL (Pyxis) INJ ONE (10:21)
[2020-04-22] MEDS: MIDAZOLAM HCL 100 MG in DEXT 5% WATER 80 ML IV PRN (10:25)
[2020-04-22] MEDS: VANCOMYCIN 750 MG PREMIX 150 ML IV SCH (13:29)
[2020-04-22 14:05] LABS: NUCLEATED RED BLOOD CELLS 1 /100 WBC; PLATELET ESTIMATE MARKEDLY DECREASED
[2020-04-22] MEDS: INSULIN LISPRO 100 UNITS/ML SUBCUT SCH ×2 (18:00→23:59)
[2020-04-22] MEDS: LATANOPROST 0.005% OPHTH DROPS 2.5ML BOTHEYE SCH (20:54)
[2020-04-22] MEDS: IPRATROPIUM/ALBUTEROL 0.5-3(2.5)MG/3ML NEB HHN SCH (21:00)
[2020-04-22] MEDS: AMIODARONE HCL 900 MG in DEXT 5% WATER 482 ML IV PRN (22:34)
[2020-04-22] MEDS: PHENYLEPHRINE 40 MG in DEXT 5% WATER 246 ML IV PRN (23:53)
[2020-04-23] VITALS (58 sets, daily range): BP systolic 63–173; BP diastolic 39–93
[2020-04-23] MEDS: BLOOD SUGAR DIAGNOSTIC STRIP TEST SCH ×4 (00:01→17:46)
[2020-04-23] MEDS: IPRATROPIUM/ALBUTEROL 0.5-3(2.5)MG/3ML NEB HHN SCH ×2 (04:50→13:56)
[2020-04-23 05:21] LABS: HEMATOCRIT. 28.5 % (36.0-48.0); HEMOGLOBIN. 9.3 g/dL (12.0-16.0); MEAN CORPUSCULAR HEMOGLOBIN 28.8 pg (28.0-32.0); MEAN CORPUSCULAR VOLUME 88.2 fL (81.0-99.0); PLATELET 137 x1000/uL (130-400); RED BLOOD CELL COUNT 3.23 mill/uL (4.2-5.4); RED CELL DISTRIBUTION WIDTH 15.5 % (11.6-14.6)
[2020-04-23] MEDS: CEFEPIME 1,000 MG in DEXTROSE 5% WATER 50 ML IV SCH ×2 (05:39→17:42)
[2020-04-23] MEDS: BRIMONIDINE 0.2% OPHTH DROPS 5ML EACHEYE SCH ×2 (05:40→14:21)
[2020-04-23] MEDS: INSULIN LISPRO 100 UNITS/ML SUBCUT SCH ×3 (05:41→17:46)
[2020-04-23] MEDS: METRONIDAZOLE 500MG TABLET PO SCH ×3 (05:42→22:00)
[2020-04-23] MEDS: FENTANYL CITRATE/PF 1,000 MCG in SODIUM CHLORIDE 0.9% 80 ML IV PRN (07:01)
[2020-04-23] MEDS: PHENYLEPHRINE 40 MG in DEXT 5% WATER 246 ML IV PRN (07:01)
[2020-04-23] MEDS ORDERED: SODIUM POLYSTYRENE SULFONATE 15 G/60 ML BOT GT NR (08:00)
[2020-04-23] MEDS: DEXAMETHASONE 10 MG/ML VIAL IV SCH (08:36)
[2020-04-23] MEDS: TIMOLOL MALEATE 0.5% OPHTH DROPS 5ML EACHEYE SCH ×2 (08:36→21:00)
[2020-04-23] MEDS: PANTOPRAZOLE SODIUM 40 MG/VIAL IV SCH (08:36)
[2020-04-23] MEDS: DOCUSATE SODIUM SUGAR FREE 100MG/10ML UDC NG SCH (08:37)
[2020-04-23] MEDS: LEVETIRACETAM 500MG TABLET PO SCH ×2 (08:37→17:42)
[2020-04-23 09:41] LABS: NUCLEATED RED BLOOD CELLS 1 /100 WBC; PLATELET ESTIMATE NORMAL
[2020-04-23 09:42] LABS: BG BASE EXCESS 1.4 mmol/L (-2.0-2.0); BG CARBOXYHEMOGLOBIN 0.3 % (0.5-1.5); BG DEOXYHEMOGLOBIN 5.4 % (0.0-5.0); BG FRACTION INSPIRED OXYGEN 100; BG HCO3 ACT 28.5 mmol/L (22.0-26.0); BG METHEMOGLOBIN 0.3 % (0.0-1.5); BG OXYGEN SATURATION 94.6 % (92.0-98.5); BG PCO2 58.9 mmHg (35.0-45.0); BG PH 7.303 (7.350-7.450); BG PO2 80.3 mmHg (75.0-100.0); BG SAMPLE SITE RIGHT RADIAL; BG TIDAL VOLUME(mL) 450 mL; BG TOTAL HEMOGLOBIN 9.8 g/dL (12.0-18.0); BG VENT MODE VENT - A/C PRVC; BG VENT RATE 26 set
[2020-04-23] MEDS: INSULIN GLARGINE UD 100 UNITS/ML SYR SUBCUT SCH ×2 (10:00→23:49)
[2020-04-23] MEDS: METOCLOPRAMIDE HCL 10MG/2ML VIAL IV SCH ×2 (12:47→17:42)
[2020-04-23] MEDS: VANCOMYCIN 750 MG PREMIX 150 ML IV SCH (14:21)
[2020-04-23] MEDS: LATANOPROST 0.005% OPHTH DROPS 2.5ML BOTHEYE SCH (21:00)
[2020-04-24] VITALS (64 sets, daily range): BP systolic 101–186; BP diastolic 44–137
[2020-04-24] MEDS ORDERED: INSULIN LISPRO 100 UNITS/ML SUBCUT NR (01:14)
[2020-04-24] MEDS ORDERED: INSULIN GLARGINE UD 100 UNITS/ML SYR SUBCUT NR (01:15)
[2020-04-24] MEDS: PHENYLEPHRINE 40 MG in DEXT 5% WATER 246 ML IV PRN ×2 (01:43→08:41)
[2020-04-24] MEDS: IPRATROPIUM/ALBUTEROL 0.5-3(2.5)MG/3ML NEB HHN SCH ×3 (08:21→20:20)
[2020-04-24 08:40] LABS: BG BASE EXCESS 1.3 mmol/L (-2.0-2.0); BG CARBOXYHEMOGLOBIN 0.3 % (0.5-1.5); BG HCO3 ACT 27.6 mmol/L (22.0-26.0); BG METHEMOGLOBIN 0.3 % (0.0-1.5); BG OXYGEN SATURATION 87.9 % (92.0-98.5); BG OXYHEMOGLOBIN 87.4 % (94.0-97.0); BG PCO2 51.4 mmHg (35.0-45.0); BG PH 7.348 (7.350-7.450); BG PO2 56.5 mmHg (75.0-100.0); BG SAMPLE SITE RIGHT RADIAL; BG TIDAL VOLUME(mL) 450 mL; BG TOTAL HEMOGLOBIN 11.1 g/dL (12.0-18.0); BG VENT MODE VENT - A/C; BG VENT RATE 26 set
[2020-04-24] MEDS: PANTOPRAZOLE SODIUM 40 MG/VIAL IV SCH (08:42)
[2020-04-24] MEDS: DEXAMETHASONE 10 MG/ML VIAL IV SCH (08:42)
[2020-04-24] MEDS: LEVETIRACETAM 500MG TABLET PO SCH ×2 (08:43→17:44)
[2020-04-24] MEDS: TIMOLOL MALEATE 0.5% OPHTH DROPS 5ML EACHEYE SCH ×2 (08:43→21:51)
[2020-04-24] MEDS: DOCUSATE SODIUM SUGAR FREE 100MG/10ML UDC NG SCH (08:43)
[2020-04-24] MEDS: INSULIN GLARGINE UD 100 UNITS/ML SYR SUBCUT SCH ×2 (10:13→23:23)
[2020-04-24] MEDS: METOCLOPRAMIDE HCL 10MG/2ML VIAL IV SCH ×3 (12:40→23:21)
[2020-04-24] MEDS: BLOOD SUGAR DIAGNOSTIC STRIP TEST SCH ×3 (12:41→23:14)
[2020-04-24] MEDS: INSULIN LISPRO 100 UNITS/ML SUBCUT SCH ×3 (12:42→23:22)
[2020-04-24] MEDS: ACETAMINOPHEN 325MG TABLET PO PRN (13:27)
[2020-04-24] MEDS: BRIMONIDINE 0.2% OPHTH DROPS 5ML EACHEYE SCH ×2 (14:00→21:51)
[2020-04-24] MEDS: VANCOMYCIN 750 MG PREMIX 150 ML IV SCH (14:19)
[2020-04-24] MEDS: METRONIDAZOLE 500MG TABLET PO SCH ×2 (14:19→21:51)
[2020-04-24] MEDS: MIDAZOLAM HCL 100 MG in DEXT 5% WATER 80 ML IV PRN (15:46)
[2020-04-24] MEDS: FENTANYL CITRATE/PF 1,000 MCG in SODIUM CHLORIDE 0.9% 80 ML IV PRN (17:47)
[2020-04-24] MEDS: CEFEPIME 1,000 MG in DEXTROSE 5% WATER 50 ML IV SCH (17:52)
[2020-04-24] MEDS: LATANOPROST 0.005% OPHTH DROPS 2.5ML BOTHEYE SCH (21:51)
[2020-04-24] MEDS: AMIODARONE HCL 900 MG in DEXT 5% WATER 482 ML IV PRN (23:39)
[2020-04-25] VITALS (95 sets, daily range): BP systolic 90–159; BP diastolic 41–75
[2020-04-25] MEDS: IPRATROPIUM/ALBUTEROL 0.5-3(2.5)MG/3ML NEB HHN SCH ×3 (00:40→20:13)
[2020-04-25 05:04] LABS: HEMATOCRIT. 25.4 % (36.0-48.0); HEMOGLOBIN. 8.5 g/dL (12.0-16.0); MEAN CORPUSCULAR VOLUME 86.2 fL (81.0-99.0); MEAN PLATELET VOLUME 10.8 fl (7.4-10.4); PLATELET 114 x1000/uL (130-400); RED BLOOD CELL COUNT 2.94 mill/uL (4.2-5.4); RED CELL DISTRIBUTION WIDTH 15.2 % (11.6-14.6)
[2020-04-25 05:07] LABS: CHLORIDE 110 mEq/L (98-107)
[2020-04-25 05:15] LABS: D-DIMER 25.42 mg/L FEU (<0.50)
[2020-04-25] MEDS: BLOOD SUGAR DIAGNOSTIC STRIP TEST SCH ×4 (05:37→23:11)
[2020-04-25] MEDS: CEFEPIME 1,000 MG in DEXTROSE 5% WATER 50 ML IV SCH ×2 (05:44→17:22)
[2020-04-25] MEDS: METOCLOPRAMIDE HCL 10MG/2ML VIAL IV SCH ×4 (05:45→23:10)
[2020-04-25] MEDS: METRONIDAZOLE 500MG TABLET PO SCH ×3 (05:45→21:06)
[2020-04-25] MEDS: BRIMONIDINE 0.2% OPHTH DROPS 5ML EACHEYE SCH ×3 (05:52→21:06)
[2020-04-25] MEDS: INSULIN LISPRO 100 UNITS/ML SUBCUT SCH ×4 (05:52→23:10)
[2020-04-25] MEDS: MIDAZOLAM HCL 100 MG in DEXT 5% WATER 80 ML IV PRN (06:33)
[2020-04-25] MEDS: FENTANYL CITRATE/PF 1,000 MCG in SODIUM CHLORIDE 0.9% 80 ML IV PRN ×2 (06:33→18:27)
[2020-04-25] MEDS: TIMOLOL MALEATE 0.5% OPHTH DROPS 5ML EACHEYE SCH ×2 (09:00→21:07)
[2020-04-25] MEDS: LEVETIRACETAM 500MG TABLET PO SCH ×2 (09:10→17:22)
[2020-04-25] MEDS: DOCUSATE SODIUM SUGAR FREE 100MG/10ML UDC NG SCH (09:10)
[2020-04-25] MEDS: DEXAMETHASONE 10 MG/ML VIAL IV SCH (09:10)
[2020-04-25] MEDS: PANTOPRAZOLE SODIUM 40 MG/VIAL IV SCH (09:10)
[2020-04-25 09:40] LABS: BG BASE EXCESS 7.6 mmol/L (-2.0-2.0); BG CARBOXYHEMOGLOBIN 0.2 % (0.5-1.5); BG DEOXYHEMOGLOBIN 11.3 % (0.0-5.0); BG FRACTION INSPIRED OXYGEN 90; BG HCO3 ACT 32.4 mmol/L (22.0-26.0); BG METHEMOGLOBIN 0.3 % (0.0-1.5); BG OXYGEN SATURATION 88.6 % (92.0-98.5); BG OXYHEMOGLOBIN 88.2 % (94.0-97.0); BG PCO2 46.8 mmHg (35.0-45.0); BG PH 7.458 (7.350-7.450); BG PO2 53.4 mmHg (75.0-100.0); BG SAMPLE SITE RIGHT RADIAL; BG TIDAL VOLUME(mL) 450 mL; BG TOTAL HEMOGLOBIN 10.9 g/dL (12.0-18.0); BG VENT MODE PRVC; BG VENT RATE 26 set
[2020-04-25 09:44] LABS: NUCLEATED RED BLOOD CELLS 2 /100 WBC; PLATELET ESTIMATE SLIGHTLY DECREASED
[2020-04-25] MEDS: INSULIN GLARGINE UD 100 UNITS/ML SYR SUBCUT SCH ×2 (11:19→23:11)
[2020-04-25] MEDS: VANCOMYCIN 750 MG PREMIX 150 ML IV SCH (14:26)
[2020-04-25] MEDS: LATANOPROST 0.005% OPHTH DROPS 2.5ML BOTHEYE SCH (21:07)
[2020-04-26] VITALS (91 sets, daily range): BP systolic 80–168; BP diastolic 31–76
[2020-04-26] MEDS: MIDAZOLAM HCL 100 MG in DEXT 5% WATER 80 ML IV PRN ×2 (03:54→17:09)
[2020-04-26] MEDS: FENTANYL CITRATE/PF 1,000 MCG in SODIUM CHLORIDE 0.9% 80 ML IV PRN (03:54)
[2020-04-26] MEDS: IPRATROPIUM/ALBUTEROL 0.5-3(2.5)MG/3ML NEB HHN SCH ×4 (04:15→20:15)
[2020-04-26] MEDS: INSULIN LISPRO 100 UNITS/ML SUBCUT SCH ×3 (05:20→18:05)
[2020-04-26] MEDS: CEFEPIME 1,000 MG in DEXTROSE 5% WATER 50 ML IV SCH ×2 (05:21→17:10)
[2020-04-26] MEDS: BRIMONIDINE 0.2% OPHTH DROPS 5ML EACHEYE SCH ×3 (05:21→21:34)
[2020-04-26] MEDS: METOCLOPRAMIDE HCL 10MG/2ML VIAL IV SCH ×3 (05:21→17:10)
[2020-04-26] MEDS: BLOOD SUGAR DIAGNOSTIC STRIP TEST SCH ×3 (05:22→18:01)
[2020-04-26] MEDS: METRONIDAZOLE 500MG TABLET PO SCH ×3 (05:22→21:33)
[2020-04-26 05:29] LABS: HEMATOCRIT. 24.8 % (36.0-48.0); HEMOGLOBIN. 8.3 g/dL (12.0-16.0); MEAN CORPUSCULAR HEMOGLOBIN 29.1 pg (28.0-32.0); PLATELET 112 x1000/uL (130-400); RED BLOOD CELL COUNT 2.85 mill/uL (4.2-5.4); RED CELL DISTRIBUTION WIDTH 14.7 % (11.6-14.6)
[2020-04-26 05:53] LABS: CHLORIDE 115 mEq/L (98-107)
[2020-04-26] MEDS ORDERED: INSULIN REGULAR (HUMULIN R) 300UNITS/3ML IV SCH (07:00)
[2020-04-26] MEDS ORDERED: SODIUM BICARBONATE 8.4% 1 MEQ/ML 50ML SYR IV SCH (07:00)
[2020-04-26] MEDS ORDERED: DEXTROSE 50% WATER 50ML SYRINGE IV SCH (07:00)
[2020-04-26] MEDS ORDERED: SODIUM POLYSTYRENE SULFONATE 15 G/60 ML BOT PO SCH (07:00)
[2020-04-26] MEDS ORDERED: CALCIUM GLUCONATE 1,000 MG in DEXT 5% WATER 90 ML IV SCH (08:00)
[2020-04-26 08:11] LABS: BG CARBOXYHEMOGLOBIN 0.3 % (0.5-1.5); BG DEOXYHEMOGLOBIN 21.1 % (0.0-5.0); BG HCO3 ACT 33.5 mmol/L (22.0-26.0); BG METHEMOGLOBIN 0.5 % (0.0-1.5); BG OXYGEN SATURATION 78.7 % (92.0-98.5); BG OXYHEMOGLOBIN 78.1 % (94.0-97.0); BG PCO2 53.3 mmHg (35.0-45.0); BG PH 7.416 (7.350-7.450); BG PO2 44.9 mmHg (75.0-100.0); BG SAMPLE SITE RIGHT RADIAL; BG TIDAL VOLUME(mL) 450 mL; BG TOTAL HEMOGLOBIN 7.5 g/dL (12.0-18.0); BG VENT MODE VENT - A/C; BG VENT RATE 26 set
[2020-04-26 08:46] LABS: BG CARBOXYHEMOGLOBIN 0.3 % (0.5-1.5); BG DEOXYHEMOGLOBIN 18.5 % (0.0-5.0); BG HCO3 ACT 37.4 mmol/L (22.0-26.0); BG METHEMOGLOBIN 0.2 % (0.0-1.5); BG OXYGEN SATURATION 81.4 % (92.0-98.5); BG PCO2 60.4 mmHg (35.0-45.0); BG PO2 48.6 mmHg (75.0-100.0); BG SAMPLE SITE RIGHT BRACHIAL; BG TIDAL VOLUME(mL) 450 mL; BG TOTAL HEMOGLOBIN 10.5 g/dL (12.0-18.0); BG VENT MODE VENT - A/C; BG VENT RATE 26 set
[2020-04-26] MEDS: TIMOLOL MALEATE 0.5% OPHTH DROPS 5ML EACHEYE SCH ×2 (09:15→20:05)
[2020-04-26] MEDS: PANTOPRAZOLE SODIUM 40 MG/VIAL IV SCH (09:16)
[2020-04-26] MEDS: LEVETIRACETAM 500MG TABLET PO SCH ×2 (09:16→17:10)
[2020-04-26] MEDS: DEXAMETHASONE 10 MG/ML VIAL IV SCH (09:16)
[2020-04-26] MEDS: DOCUSATE SODIUM SUGAR FREE 100MG/10ML UDC NG SCH (09:16)
[2020-04-26] MEDS: INSULIN GLARGINE UD 100 UNITS/ML SYR SUBCUT SCH ×2 (09:17→21:35)
[2020-04-26 13:48] LABS: NUCLEATED RED BLOOD CELLS 1 /100 WBC; PLATELET ESTIMATE SLIGHTLY DECREASED
[2020-04-26] MEDS: VANCOMYCIN 750 MG PREMIX 150 ML IV SCH (14:34)
[2020-04-26] MEDS: LATANOPROST 0.005% OPHTH DROPS 2.5ML BOTHEYE SCH (20:05)
[2020-04-26] MEDS ORDERED: SODIUM POLYSTYRENE SULFONATE 15 G/60 ML BOT PO NR (20:45)
[2020-04-27] VITALS (97 sets, daily range): BP systolic 85–168; BP diastolic 33–145
[2020-04-27] MEDS: BLOOD SUGAR DIAGNOSTIC STRIP TEST SCH ×4 (00:39→18:36)
[2020-04-27] MEDS: METOCLOPRAMIDE HCL 10MG/2ML VIAL IV SCH ×4 (00:43→17:15)
[2020-04-27] MEDS: INSULIN LISPRO 100 UNITS/ML SUBCUT SCH ×4 (00:45→18:40)
[2020-04-27] MEDS: IPRATROPIUM/ALBUTEROL 0.5-3(2.5)MG/3ML NEB HHN SCH ×3 (01:00→20:56)
[2020-04-27] MEDS: METRONIDAZOLE 500MG TABLET PO SCH ×3 (05:08→21:05)
[2020-04-27] MEDS: BRIMONIDINE 0.2% OPHTH DROPS 5ML EACHEYE SCH ×3 (05:08→21:06)
[2020-04-27] MEDS: CEFEPIME 1,000 MG in DEXTROSE 5% WATER 50 ML IV SCH ×2 (05:21→17:14)
[2020-04-27 07:48] LABS: BG BASE EXCESS 9.6 mmol/L (-2.0-2.0); BG CARBOXYHEMOGLOBIN 0.3 % (0.5-1.5); BG DEOXYHEMOGLOBIN 5.6 % (0.0-5.0); BG HCO3 ACT 34.1 mmol/L (22.0-26.0); BG METHEMOGLOBIN 0.1 % (0.0-1.5); BG OXYGEN SATURATION 94.4 % (92.0-98.5); BG PCO2 46.8 mmHg (35.0-45.0); BG PO2 76.5 mmHg (75.0-100.0); BG SAMPLE SITE RIGHT RADIAL; BG TIDAL VOLUME(mL) 450 mL; BG TOTAL HEMOGLOBIN 8.6 g/dL (12.0-18.0); BG VENT MODE VENT - A/C; BG VENT RATE 26 set
[2020-04-27] MEDS: MIDAZOLAM HCL 100 MG in DEXT 5% WATER 80 ML IV PRN (08:24)
[2020-04-27] MEDS: PANTOPRAZOLE SODIUM 40 MG/VIAL IV SCH (09:11)
[2020-04-27] MEDS: DEXAMETHASONE 10 MG/ML VIAL IV SCH (09:11)
[2020-04-27] MEDS: DOCUSATE SODIUM SUGAR FREE 100MG/10ML UDC NG SCH (09:12)
[2020-04-27] MEDS: LEVETIRACETAM 500MG TABLET PO SCH ×2 (09:12→17:14)
[2020-04-27] MEDS: ACETAMINOPHEN 325MG TABLET PO PRN (09:13)
[2020-04-27] MEDS: INSULIN GLARGINE UD 100 UNITS/ML SYR SUBCUT SCH ×2 (09:14→21:06)
[2020-04-27] MEDS: TIMOLOL MALEATE 0.5% OPHTH DROPS 5ML EACHEYE SCH ×2 (09:16→20:41)
[2020-04-27 10:19] LABS: HEMATOCRIT. 23.4 % (36.0-48.0); HEMOGLOBIN. 7.7 g/dL (12.0-16.0); MEAN CORPUSCULAR HEMOGLOBIN 29.2 pg (28.0-32.0); MEAN CORPUSCULAR VOLUME 88.4 fL (81.0-99.0); MEAN PLATELET VOLUME 11.3 fl (7.4-10.4); PLATELET 122 x1000/uL (130-400); RED BLOOD CELL COUNT 2.65 mill/uL (4.2-5.4); RED CELL DISTRIBUTION WIDTH 14.8 % (11.6-14.6)
[2020-04-27 10:37] LABS: CHLORIDE 115 mEq/L (98-107)
[2020-04-27] MEDS: SODIUM CHLORIDE 0.45% 1,000 ML IV SCH ×2 (12:26→20:41)
[2020-04-27 13:06] LABS: BG BASE EXCESS 11.4 mmol/L (-2.0-2.0); BG CARBOXYHEMOGLOBIN 0.3 % (0.5-1.5); BG DEOXYHEMOGLOBIN 6.1 % (0.0-5.0); BG HCO3 ACT 36.8 mmol/L (22.0-26.0); BG METHEMOGLOBIN 0.1 % (0.0-1.5); BG OXYGEN SATURATION 93.9 % (92.0-98.5); BG OXYHEMOGLOBIN 93.5 % (94.0-97.0); BG PCO2 53.5 mmHg (35.0-45.0); BG PH 7.455 (7.350-7.450); BG PO2 75.5 mmHg (75.0-100.0); BG SAMPLE SITE RIGHT RADIAL; BG TIDAL VOLUME(mL) 450 mL; BG TOTAL HEMOGLOBIN 9.5 g/dL (12.0-18.0); BG VENT MODE VENT - A/C; BG VENT RATE 26 set
[2020-04-27 13:37] LABS: NUCLEATED RED BLOOD CELLS 1 /100 WBC
[2020-04-27 13:38] LABS: PLATELET ESTIMATE SLIGHTLY DECREASED
[2020-04-27] MEDS: VANCOMYCIN 750 MG PREMIX 150 ML IV SCH (14:49)
[2020-04-27] MEDS: LATANOPROST 0.005% OPHTH DROPS 2.5ML BOTHEYE SCH (20:42)
[2020-04-28] VITALS (84 sets, daily range): BP systolic 106–179; BP diastolic 43–87
[2020-04-28] MEDS: BLOOD SUGAR DIAGNOSTIC STRIP TEST SCH ×5 (00:45→23:48)
[2020-04-28] MEDS: METOCLOPRAMIDE HCL 10MG/2ML VIAL IV SCH ×5 (00:50→23:48)
[2020-04-28] MEDS: INSULIN LISPRO 100 UNITS/ML SUBCUT SCH ×5 (00:51→23:49)
[2020-04-28] MEDS: IPRATROPIUM/ALBUTEROL 0.5-3(2.5)MG/3ML NEB HHN SCH ×5 (01:10→20:45)
[2020-04-28] MEDS: SODIUM CHLORIDE 0.45% 1,000 ML IV SCH ×3 (01:35→20:48)
[2020-04-28 03:20] LABS: CHLORIDE 113 mEq/L (98-107)
[2020-04-28 03:28] LABS: PHOSPHORUS 5.2 mg/dL (2.5-4.9)
[2020-04-28 03:31] LABS: HEMATOCRIT. 27.2 % (36.0-48.0); HEMOGLOBIN. 8.7 g/dL (12.0-16.0); MEAN CORPUSCULAR HEMOGLOBIN 28.3 pg (28.0-32.0); MEAN CORPUSCULAR VOLUME 87.9 fL (81.0-99.0); MEAN PLATELET VOLUME 11.3 fl (7.4-10.4); PLATELET 131 x1000/uL (130-400); RED CELL DISTRIBUTION WIDTH 15.4 % (11.6-14.6)
[2020-04-28] MEDS: CEFEPIME 1,000 MG in DEXTROSE 5% WATER 50 ML IV SCH ×2 (05:30→17:46)
[2020-04-28] MEDS: METRONIDAZOLE 500MG TABLET PO SCH ×3 (05:30→21:24)
[2020-04-28] MEDS: BRIMONIDINE 0.2% OPHTH DROPS 5ML EACHEYE SCH ×3 (05:52→21:24)
[2020-04-28 05:53] LABS: PLATELET ESTIMATE NORMAL
[2020-04-28] MEDS: MIDAZOLAM HCL 100 MG in DEXT 5% WATER 80 ML IV PRN ×2 (05:54→18:33)
[2020-04-28 09:05] LABS: BG BASE EXCESS 5.5 mmol/L (-2.0-2.0); BG CARBOXYHEMOGLOBIN 0.3 % (0.5-1.5); BG FRACTION INSPIRED OXYGEN 90; BG METHEMOGLOBIN 0.2 % (0.0-1.5); BG OXYHEMOGLOBIN 95.5 % (94.0-97.0); BG PCO2 55.9 mmHg (35.0-45.0); BG PH 7.375 (7.350-7.450); BG PO2 92.9 mmHg (75.0-100.0); BG SAMPLE SITE RIGHT RADIAL; BG TIDAL VOLUME(mL) 450 mL; BG TOTAL HEMOGLOBIN 11.1 g/dL (12.0-18.0); BG VENT MODE PRVC; BG VENT RATE 22 set
[2020-04-28] MEDS: DEXAMETHASONE 10 MG/ML VIAL IV SCH (09:07)
[2020-04-28] MEDS: DOCUSATE SODIUM SUGAR FREE 100MG/10ML UDC NG SCH (09:07)
[2020-04-28] MEDS: LEVETIRACETAM 500MG TABLET PO SCH ×2 (09:07→17:45)
[2020-04-28] MEDS: PANTOPRAZOLE SODIUM 40 MG/VIAL IV SCH (09:07)
[2020-04-28] MEDS: INSULIN GLARGINE UD 100 UNITS/ML SYR SUBCUT SCH ×2 (09:08→21:25)
[2020-04-28] MEDS: TIMOLOL MALEATE 0.5% OPHTH DROPS 5ML EACHEYE SCH ×2 (09:08→20:07)
[2020-04-28] MEDS ORDERED: SODIUM POLYSTYRENE SULFONATE 15 G/60 ML BOT PO NR (11:00)
[2020-04-28] MEDS ORDERED: PROPOFOL 200MG/20ML VIAL IV SCH (13:00)
[2020-04-28] MEDS ORDERED: LIDOCAINE HCL/EPINEPHRINE 1%-EPI 1:100,000 20 ML VIAL INFIL SCH (13:00)
[2020-04-28] MEDS: VANCOMYCIN 750 MG PREMIX 150 ML IV SCH (16:22)
[2020-04-28] MEDS: FENTANYL CITRATE/PF 1,000 MCG in SODIUM CHLORIDE 0.9% 80 ML IV PRN (17:32)
[2020-04-28] MEDS: DEXAMETHASONE 1MG TABLET PO SCH ×2 (17:46→23:48)
[2020-04-28] MEDS: DESMOPRESSIN ACETATE 0.1MG TABLET PO SCH (20:07)
[2020-04-28] MEDS: LATANOPROST 0.005% OPHTH DROPS 2.5ML BOTHEYE SCH (20:07)
[2020-04-28 20:36] LABS: HEPATITIS B SURFACE ANTIGEN NEGATIVE
[2020-04-29] VITALS (99 sets, daily range): BP systolic 66–177; BP diastolic 27–89
[2020-04-29] MEDS: SODIUM CHLORIDE 0.45% 1,000 ML IV SCH ×3 (03:24→12:35)
[2020-04-29] MEDS: METOCLOPRAMIDE HCL 10MG/2ML VIAL IV SCH ×4 (05:19→23:43)
[2020-04-29] MEDS: BRIMONIDINE 0.2% OPHTH DROPS 5ML EACHEYE SCH ×3 (05:19→21:22)
[2020-04-29] MEDS: DEXAMETHASONE 1MG TABLET PO SCH ×4 (05:19→23:43)
[2020-04-29] MEDS: INSULIN LISPRO 100 UNITS/ML SUBCUT SCH ×4 (05:19→23:43)
[2020-04-29] MEDS: BLOOD SUGAR DIAGNOSTIC STRIP TEST SCH ×4 (05:19→23:43)
[2020-04-29 05:51] LABS: HEMATOCRIT. 22.6 % (36.0-48.0); HEMOGLOBIN. 7.4 g/dL (12.0-16.0); MEAN CORPUSCULAR HEMOGLOBIN 28.8 pg (28.0-32.0); MEAN PLATELET VOLUME 11.9 fl (7.4-10.4); PLATELET 123 x1000/uL (130-400); RED BLOOD CELL COUNT 2.57 mill/uL (4.2-5.4); RED CELL DISTRIBUTION WIDTH 14.9 % (11.6-14.6)
[2020-04-29 05:57] LABS: CHLORIDE 111 mEq/L (98-107)
[2020-04-29] MEDS: DOCUSATE SODIUM SUGAR FREE 100MG/10ML UDC NG SCH (08:01)
[2020-04-29] MEDS: DESMOPRESSIN ACETATE 0.1MG TABLET PO SCH ×2 (08:01→21:22)
[2020-04-29] MEDS: LEVETIRACETAM 500MG TABLET PO SCH ×2 (08:01→16:57)
[2020-04-29] MEDS: TIMOLOL MALEATE 0.5% OPHTH DROPS 5ML EACHEYE SCH ×2 (08:01→21:22)
[2020-04-29] MEDS: PANTOPRAZOLE SODIUM 40 MG/VIAL IV SCH (08:01)
[2020-04-29] MEDS: IPRATROPIUM/ALBUTEROL 0.5-3(2.5)MG/3ML NEB HHN SCH ×4 (08:30→20:18)
[2020-04-29 08:41] LABS: BG BASE EXCESS 8.6 mmol/L (-2.0-2.0); BG CARBOXYHEMOGLOBIN 0.1 % (0.5-1.5); BG DEOXYHEMOGLOBIN 2.8 % (0.0-5.0); BG FRACTION INSPIRED OXYGEN 90; BG HCO3 ACT 32.5 mmol/L (22.0-26.0); BG METHEMOGLOBIN 0.2 % (0.0-1.5); BG OXYGEN SATURATION 97.2 % (92.0-98.5); BG OXYHEMOGLOBIN 96.9 % (94.0-97.0); BG PCO2 41.7 mmHg (35.0-45.0); BG PH 7.509 (7.350-7.450); BG PO2 101.9 mmHg (75.0-100.0); BG SAMPLE SITE RIGHT RADIAL; BG TIDAL VOLUME(mL) 450 mL; BG TOTAL HEMOGLOBIN 7.8 g/dL (12.0-18.0); BG VENT MODE VENT- PRVC; BG VENT RATE 22 set
[2020-04-29] MEDS: INSULIN GLARGINE UD 100 UNITS/ML SYR SUBCUT SCH ×2 (10:58→22:00)
[2020-04-29 11:15] LABS: PLATELET ESTIMATE SLIGHTLY DECREASED
[2020-04-29] MEDS: CEFEPIME 1,000 MG in DEXTROSE 5% WATER 50 ML IV SCH ×2 (11:16→23:44)
[2020-04-29] MEDS: NOREPINEPHRINE 16 MG in DEXT 5% WATER 484 ML IV PRN (15:06)
[2020-04-29] MEDS: METRONIDAZOLE 500MG TABLET PO SCH ×2 (15:23→21:22)
[2020-04-29] MEDS: VANCOMYCIN 750 MG PREMIX 150 ML IV SCH (15:40)
[2020-04-29] MEDS: LATANOPROST 0.005% OPHTH DROPS 2.5ML BOTHEYE SCH (21:21)
[2020-04-30] VITALS (99 sets, daily range): BP systolic 57–207; BP diastolic 27–118
[2020-04-30] MEDS: IPRATROPIUM/ALBUTEROL 0.5-3(2.5)MG/3ML NEB HHN SCH ×6 (00:10→21:03)
[2020-04-30] MEDS: METOCLOPRAMIDE HCL 10MG/2ML VIAL IV SCH ×3 (05:04→17:39)
[2020-04-30] MEDS: BLOOD SUGAR DIAGNOSTIC STRIP TEST SCH ×3 (05:04→17:46)
[2020-04-30] MEDS: BRIMONIDINE 0.2% OPHTH DROPS 5ML EACHEYE SCH ×3 (05:04→22:30)
[2020-04-30] MEDS: DEXAMETHASONE 1MG TABLET PO SCH ×3 (05:04→17:44)
[2020-04-30] MEDS: INSULIN LISPRO 100 UNITS/ML SUBCUT SCH ×3 (05:05→17:32)
[2020-04-30] MEDS: SODIUM CHLORIDE 0.45% 1,000 ML IV SCH ×2 (05:05→15:34)
[2020-04-30] MEDS: METRONIDAZOLE 500MG TABLET PO SCH ×2 (05:06→15:32)
[2020-04-30 06:05] LABS: HEMATOCRIT. 27.2 % (36.0-48.0); HEMOGLOBIN. 8.9 g/dL (12.0-16.0); MEAN CORPUSCULAR HEMOGLOBIN 29.1 pg (28.0-32.0); MEAN CORPUSCULAR VOLUME 88.7 fL (81.0-99.0); MEAN PLATELET VOLUME 10.8 fl (7.4-10.4); PLATELET 132 x1000/uL (130-400); RED BLOOD CELL COUNT 3.07 mill/uL (4.2-5.4); RED CELL DISTRIBUTION WIDTH 15.4 % (11.6-14.6)
[2020-04-30 06:12] LABS: CHLORIDE 107 mEq/L (98-107)
[2020-04-30 08:00] LABS: NUCLEATED RED BLOOD CELLS 2 /100 WBC
[2020-04-30 08:01] LABS: PLATELET ESTIMATE NORMAL
[2020-04-30] MEDS: PANTOPRAZOLE SODIUM 40 MG/VIAL IV SCH (08:38)
[2020-04-30] MEDS: LEVETIRACETAM 500MG TABLET PO SCH ×2 (08:38→08:42)
[2020-04-30] MEDS: DOCUSATE SODIUM SUGAR FREE 100MG/10ML UDC NG SCH (08:38)
[2020-04-30] MEDS: TIMOLOL MALEATE 0.5% OPHTH DROPS 5ML EACHEYE SCH ×2 (08:45→22:02)
[2020-04-30] MEDS: DESMOPRESSIN ACETATE 0.1MG TABLET PO SCH ×2 (08:47→22:03)
[2020-04-30 09:31] LABS: BG BASE EXCESS 3.5 mmol/L (-2.0-2.0); BG CARBOXYHEMOGLOBIN 0.2 % (0.5-1.5); BG DEOXYHEMOGLOBIN 3.5 % (0.0-5.0); BG FRACTION INSPIRED OXYGEN 80; BG HCO3 ACT 31.2 mmol/L (22.0-26.0); BG METHEMOGLOBIN 0.4 % (0.0-1.5); BG OXYGEN SATURATION 96.5 % (92.0-98.5); BG OXYHEMOGLOBIN 95.9 % (94.0-97.0); BG PCO2 65.4 mmHg (35.0-45.0); BG PH 7.297 (7.350-7.450); BG PO2 96.8 mmHg (75.0-100.0); BG SAMPLE SITE RIGHT RADIAL; BG TIDAL VOLUME(mL) 450 mL; BG TOTAL HEMOGLOBIN 10.6 g/dL (12.0-18.0); BG VENT MODE VENT - A/C PRVC; BG VENT RATE 16 set
[2020-04-30] MEDS: INSULIN GLARGINE UD 100 UNITS/ML SYR SUBCUT SCH ×2 (11:10→22:04)
[2020-04-30] MEDS: CEFEPIME 1,000 MG in DEXTROSE 5% WATER 50 ML IV SCH (12:00)
[2020-04-30] MEDS: VANCOMYCIN 750 MG PREMIX 150 ML IV SCH (15:36)
[2020-04-30] MEDS: MEROPENEM 1,000 MG in SODIUM CHLORIDE 0.9% 100 ML IV SCH (18:56)
[2020-04-30] MEDS: LATANOPROST 0.005% OPHTH DROPS 2.5ML BOTHEYE SCH (22:03)
[2020-05-01] VITALS (94 sets, daily range): BP systolic 71–165; BP diastolic 30–65
[2020-05-01] MEDS: IPRATROPIUM/ALBUTEROL 0.5-3(2.5)MG/3ML NEB HHN SCH ×5 (00:40→21:15)
[2020-05-01] MEDS: DEXAMETHASONE 1MG TABLET PO SCH ×4 (00:41→18:31)
[2020-05-01] MEDS: METOCLOPRAMIDE HCL 10MG/2ML VIAL IV SCH ×4 (00:41→18:31)
[2020-05-01] MEDS: MEROPENEM 1,000 MG in SODIUM CHLORIDE 0.9% 100 ML IV SCH ×3 (01:44→18:30)
[2020-05-01] MEDS: SODIUM CHLORIDE 0.45% 1,000 ML IV SCH ×2 (04:09→20:50)
[2020-05-01 04:53] LABS: HEMATOCRIT. 25.1 % (36.0-48.0); HEMOGLOBIN. 8.3 g/dL (12.0-16.0); MEAN CORPUSCULAR HEMOGLOBIN 29.3 pg (28.0-32.0); MEAN CORPUSCULAR VOLUME 88.8 fL (81.0-99.0); MEAN PLATELET VOLUME 11.3 fl (7.4-10.4); PLATELET 116 x1000/uL (130-400); RED BLOOD CELL COUNT 2.83 mill/uL (4.2-5.4); RED CELL DISTRIBUTION WIDTH 15.5 % (11.6-14.6)
[2020-05-01 04:55] LABS: CHLORIDE 108 mEq/L (98-107)
[2020-05-01 05:01] LABS: CREATINE KINASE 404 IU/L (26-192)
[2020-05-01] MEDS: BLOOD SUGAR DIAGNOSTIC STRIP TEST SCH ×4 (06:29→18:46)
[2020-05-01] MEDS: BRIMONIDINE 0.2% OPHTH DROPS 5ML EACHEYE SCH ×3 (06:29→21:08)
[2020-05-01] MEDS: INSULIN LISPRO 100 UNITS/ML SUBCUT SCH ×4 (06:49→18:48)
[2020-05-01] MEDS: NOREPINEPHRINE 16 MG in DEXT 5% WATER 484 ML IV PRN (08:56)
[2020-05-01] MEDS: DOCUSATE SODIUM SUGAR FREE 100MG/10ML UDC NG SCH (09:00)
[2020-05-01] MEDS: TIMOLOL MALEATE 0.5% OPHTH DROPS 5ML EACHEYE SCH ×2 (09:00→20:49)
[2020-05-01] MEDS: LEVETIRACETAM 500MG TABLET PO SCH ×2 (09:00→18:31)
[2020-05-01] MEDS: DESMOPRESSIN ACETATE 0.1MG TABLET PO SCH ×2 (09:00→20:50)
[2020-05-01] MEDS: PANTOPRAZOLE SODIUM 40 MG/VIAL IV SCH (09:00)
[2020-05-01 09:51] LABS: PLATELET ESTIMATE SLIGHTLY DECREASED
[2020-05-01] MEDS: INSULIN GLARGINE UD 100 UNITS/ML SYR SUBCUT SCH ×2 (10:00→21:37)
[2020-05-01 10:06] LABS: BG BASE EXCESS 6.4 mmol/L (-2.0-2.0); BG CARBOXYHEMOGLOBIN 0.3 % (0.5-1.5); BG DEOXYHEMOGLOBIN 7.6 % (0.0-5.0); BG FRACTION INSPIRED OXYGEN 70; BG HCO3 ACT 33.1 mmol/L (22.0-26.0); BG METHEMOGLOBIN 0.5 % (0.0-1.5); BG OXYGEN SATURATION 92.3 % (92.0-98.5); BG OXYHEMOGLOBIN 91.6 % (94.0-97.0); BG PCO2 60.7 mmHg (35.0-45.0); BG PH 7.355 (7.350-7.450); BG PO2 65.4 mmHg (75.0-100.0); BG SAMPLE SITE RIGHT RADIAL; BG TIDAL VOLUME(mL) 450 mL; BG TOTAL HEMOGLOBIN 9.3 g/dL (12.0-18.0); BG VENT MODE PRVC; BG VENT RATE 20 set
[2020-05-01] MEDS ORDERED: SODIUM POLYSTYRENE SULFONATE 15 G/60 ML BOT PO NR (11:30)
[2020-05-01] MEDS ORDERED: VANCOMYCIN 1 G PREMIX 200 ML IV SCH (14:00)
[2020-05-01] MEDS: LATANOPROST 0.005% OPHTH DROPS 2.5ML BOTHEYE SCH (20:49)
[2020-05-02] VITALS (74 sets, daily range): BP systolic 70–189; BP diastolic 37–99
[2020-05-02] MEDS: INSULIN LISPRO 100 UNITS/ML SUBCUT SCH ×2 (00:28→05:20)
[2020-05-02] MEDS: DEXAMETHASONE 1MG TABLET PO SCH ×2 (00:28→05:08)
[2020-05-02] MEDS: METOCLOPRAMIDE HCL 10MG/2ML VIAL IV SCH ×2 (00:29→05:08)
[2020-05-02] MEDS: IPRATROPIUM/ALBUTEROL 0.5-3(2.5)MG/3ML NEB HHN SCH ×4 (00:47→12:47)
[2020-05-02] MEDS: MEROPENEM 1,000 MG in SODIUM CHLORIDE 0.9% 100 ML IV SCH (02:42)
[2020-05-02 04:58] LABS: HEMATOCRIT. 25.1 % (36.0-48.0); HEMOGLOBIN. 8.1 g/dL (12.0-16.0); MEAN CORPUSCULAR HEMOGLOBIN 28.8 pg (28.0-32.0); MEAN PLATELET VOLUME 10.8 fl (7.4-10.4); PLATELET 129 x1000/uL (130-400); RED BLOOD CELL COUNT 2.82 mill/uL (4.2-5.4); RED CELL DISTRIBUTION WIDTH 16.2 % (11.6-14.6)
[2020-05-02] MEDS: BRIMONIDINE 0.2% OPHTH DROPS 5ML EACHEYE SCH (05:08)
[2020-05-02] MEDS: BLOOD SUGAR DIAGNOSTIC STRIP TEST SCH ×2 (05:08)
[2020-05-02 07:03] LABS: CHLORIDE 106 mEq/L (98-107)
[2020-05-02 12:36] LABS: BG BASE EXCESS 6.8 mmol/L (-2.0-2.0); BG CARBOXYHEMOGLOBIN 0.3 % (0.5-1.5); BG DEOXYHEMOGLOBIN 2.1 % (0.0-5.0); BG FRACTION INSPIRED OXYGEN 100; BG METHEMOGLOBIN 0.6 % (0.0-1.5); BG OXYGEN SATURATION 97.9 % (92.0-98.5); BG PCO2 49.4 mmHg (35.0-45.0); BG PH 7.429 (7.350-7.450); BG PO2 121.8 mmHg (75.0-100.0); BG SAMPLE SITE RIGHT RADIAL; BG TIDAL VOLUME(mL) 450 mL; BG TOTAL HEMOGLOBIN 9.1 g/dL (12.0-18.0); BG VENT MODE VENT - PRVC; BG VENT RATE 20 set
[2020-05-02 14:14] LABS: NUCLEATED RED BLOOD CELLS 1 /100 WBC; PLATELET ESTIMATE NORMAL
== END 2020-05-02 15:15 | disposition expired | DRG 3 ==
LOC: ER 07:33 → 7WST 09:11 → EDBEDREQTM 09:14 → EDBEDREQ 09:14 → ENRESERV 19:48 → CANRESERV 19:48 → ENRESERV 20:32 → MICUSO 04-16 00:45
PROVIDERS: ADMIT Internal Medicine; ATTEND Internal Medicine
PROC: 5A1955Z Respiratory Ventilation, Greater than 96 Consecutive Hours (ICD-10-PCS; principal; 2020-04-16)
PROC: 0BH17EZ Insertion of Endotracheal Airway into Trachea, Via Natural or Artificial Opening (ICD-10-PCS; 2020-04-16)
PROC: 30233R1 Transfusion of Nonautologous Platelets into Peripheral Vein, Percutaneous Approach (ICD-10-PCS; 2020-04-17)
PROC: 06H033Z Insertion of Infusion Device into Inferior Vena Cava, Percutaneous Approach (ICD-10-PCS; 2020-04-22)
PROC: B549ZZA Ultrasonography of Inferior Vena Cava, Guidance (ICD-10-PCS; 2020-04-22)
PROC: 0B110F4 Bypass Trachea to Cutaneous with Tracheostomy Device, Open Approach (ICD-10-PCS; 2020-04-28)
PROC: 0GBJ0ZZ Excision of Thyroid Gland Isthmus, Open Approach (ICD-10-PCS; 2020-04-28)
PROC: 30233N1 Transfusion of Nonautologous Red Blood Cells into Peripheral Vein, Percutaneous Approach (ICD-10-PCS; 2020-04-29)
DX: A41.89 Other specified sepsis (principal); U07.1 COVID-19; G93.41 Metabolic encephalopathy; J12.89 Other viral pneumonia; J96.01 Acute respiratory failure with hypoxia; R65.21 Severe sepsis with septic shock; N17.0 Acute kidney failure with tubular necrosis; N39.0 Urinary tract infection, site not specified; E46 Unspecified protein-calorie malnutrition; E11.52 Type 2 diabetes mellitus with diabetic peripheral angiopathy with gangrene; E87.0 Hyperosmolality and hypernatremia; E87.3 Alkalosis; Z99.11 Dependence on respirator [ventilator] status; D68.69 Other thrombophilia; T79.7XXA Traumatic subcutaneous emphysema, initial encounter; I12.9 Hypertensive chronic kidney disease with stage 1 through stage 4 chronic kidney disease, or unspecified chronic kidney disease; N18.9 Chronic kidney disease, unspecified; E11.649 Type 2 diabetes mellitus with hypoglycemia without coma; G40.909 Epilepsy, unspecified, not intractable, without status epilepticus; J20.8 Acute bronchitis due to other specified organisms; E11.22 Type 2 diabetes mellitus with diabetic chronic kidney disease; D69.6 Thrombocytopenia, unspecified; R00.1 Bradycardia, unspecified; D64.9 Anemia, unspecified; D72.810 Lymphocytopenia; E87.5 Hyperkalemia; X58.XXXA Exposure to other specified factors, initial encounter; I48.0 Paroxysmal atrial fibrillation; E86.0 Dehydration; E87.6 Hypokalemia; E11.65 Type 2 diabetes mellitus with hyperglycemia; T38.0X5A Adverse effect of glucocorticoids and synthetic analogues, initial encounter; Y92.238 Other place in hospital as the place of occurrence of the external cause; I69.30 Unspecified sequelae of cerebral infarction
CPT/HCPCS: 36415; 36600; 71045; 76937; 80048; 80053; 80061; 80156; 80165; 80184; 80185; 80202; 81003; 82375; 82550; 82728; 82805; 82962; 83036; 83605; 83615; 83735; 83880; 84100; 84132; 84145; 84295; 84439; 84443; 84478; 84484; 85025; 85049; 85379; 85384; 86022; 86140; 86850; 86870; 86900; 86920; 87635; 93005; 94003; 94640; 99291; C1769; C9113; J0282; J0456; J0610; J0692; J0696; J1100; J1160; J1200; J1650; J1815; J1953; J1956; J2185; J2250; J2370; J2704; J2765; J3010; J3370; J3490; J7050; J7060; J7070; J8540; P9016; P9034; Q9957; U0003-CS